=== PATIENT | female | born 1970 | race Caucasian/White ===

== ENCOUNTER 2020-08-29 16:14 | Emergency (ER) | payer BC, SELFPAY ==
[2020-08-29 16:14] VITALS: BP 118/93; PULSE 99; RESP 17; TEMP 36.7; O2SAT 94; BMI 27.3
--- NOTE | 2020-08-29 16:25 | PC.NURSE ---
PT STILL HAVING SOME SNORING RESP VERY HARD TO WAKE UP , PT RECEIVED 3MG INTRA NASAL BY EMS.
--- NOTE | 2020-08-29 16:27 | HMH.EDGENADL ---
ED Disposition Clinical Impression: Heroin overdose Qualifiers: Encounter type: initial encounter Injury intent: accidental or unintentional Qualified Code(s): T40.1X1A - Poisoning by heroin, accidental (unintentional), initial encounter Disposition: Home, Self-Care Condition on Discharge: Good Instructions: DI for Drug Overdose in Adults Referrals: PCP,No [Primary Care Provider] - - Critical Care Critical Care Time: No Attestation: On , the high probability of a clinically significant, sudden or life threatening deterioration of the following system(s) required my full and direct attention, intervention and personal management. The time I documented below is in addition to time spent performing reported procedures but includes the following listed in this critical care notation. Medical Decision Making - [place] Inquiry Pt receiving controlled substance: No Vital Signs: 08/29/20 16:14 08/29/20 16:31 08/29/20 17:00 Temperature 98.1 F Temperature Source Oral Pulse Rate 91 H 87 Pulse Rate [Right Brachial] 99 H Respiratory Rate 17 16 17 Blood Pressure 151/80 H Blood Pressure [Right Arm] 118/93 H Blood Pressure Mean 104 Blood Pressure Mean [Right Arm] 101 Blood Pressure Source [Right Arm] Automatic Cuff Blood Pressure Position [Right Arm] Supine 02 Sat by Pulse Oximetry 94 L 97 98 Oxygen Delivery Method Room Air Room Air Room Air - Lab Data Lab Results 08/29/20 16:25: WBC 7.9, RBC 4.59, Hgb 13.8, Hct 42.5, MCV 92.7, MCH 30.0, MCHC 32.4, RDW 13.1, Plt Count 254, MPV 7.3 L, Neut % (Auto) 53.6, Lymph % (Auto) 37.6, [place] % (Auto) 5.7, Eos % (Auto) 2.6, Baso % (Auto) 0.5, Neut # (Auto) 4.3, Lymph # (Auto) 3.0, [place] # (Auto) 0.5, Eos # (Auto) 0.2, Baso # (Auto) 0.0 08/29/20 16:25: Sodium 142, Potassium 4.2, Chloride 100, Carbon Dioxide 35 H, Anion Gap 11.2, BUN 11, Creatinine 1.00, Estimated Creat Clear 80, Estimated GFR 59, Est GFR ( Amer) 71, Glucose 140 H, Calcium 9.2, Total Bilirubin 0.3, AST 25, ALT 17, Alkaline Phosphatase 79, Total Protein 7.0, Albumin 4.3, Globulin 2.7, Albumin/Globulin Ratio 1.6 Result diagrams: 08/29/20 16:25 08/29/20 16:25 Orders (Tests/Meds): ED MEDICATIONS Discontinued Medications Generic Name Dose Route Start Last Admin Trade Name Daniel PRN Reason Stop Dose Admin Naloxone HCl 2 mg 08/29/20 16:30 08/29/20 16:33 Naloxone 2mg/2ml Syringe IV 08/29/20 16:31 2 mg ONCE ONE Administration ORDERS Category Date Time Status Drug Screen,Urine Stat Lab 08/29/20 16:36 Ordered - Reevaluation(s) Time: 18:10 Reevaluation #1: 2 hours after arrival patient is awake alert, ambulatory, and insisting on discharge. General Adult HPI - General Stated complaint: od Time Seen by Provider: 08/29/20 16:27 - History of Present Illness HPI narrative: Brought in by ambulance along with her boyfriend, both with an apparent overdose. Both were unresponsive upon sectionizer arrival. Both received Narcan prior to arrival with response. She arrived still drowsy with sonorous respirations and was given additional Narcan with immediate response. She now appears to be in withdrawal. She is shivering, complaining of feeling cold, hyperactive and restless. She says I guess I overdosed . She admits to snorting heroin with her boyfriend. She says she uses heroin several times a month. She is on prescribed Adderall. She denies any other drug use or alcohol use. - Related Data Home Medications Medication Instructions Recorded Confirmed Dextroamphetamine/Amphetamine 20 mg PO BID 08/29/20 08/29/20 [Dextroamp-Amphetamin 20 mg Tab] estradioL [Estradiol (Twice 1 each TD DIRECTED 08/29/20 08/29/20 Weekly)] Allergies Allergy/AdvReac Type Severity Reaction Status Date / Time Penicillins Allergy Mild Verified 08/29/20 16:29 Sulfa (Sulfonamide Allergy Mild Verified 08/29/20 16:29 Antibiotics) [facility] History - H
[2020-08-29 16:29] VITALS: BMI 25.0
[2020-08-29 16:31] VITALS: PULSE 91; RESP 16; O2SAT 97
[2020-08-29 16:44] LABS: Basophils % 0.5 % (0.1-2.0); Eosinophils # 0.2 K/mm3 (0.0-0.4); Eosinophils % 2.6 % (0.1-12.0); Hematocrit 42.5 % (37.0-47.0); Hemoglobin 13.8 g/dL (12.2-16.2); Lymphocytes % 37.6 % (10-50); Mean Corpuscular HGB Conc 32.4 g/dL (31.8-35.4); Mean Corpuscular Volume 92.7 fl (81-99); Mean Platelet Volume 7.3 fl (7.4-10.4); Monocytes # 0.5 K/mm3 (0.1-1.0); Monocytes % 5.7 % (1.7-9.3); Neutrophils # 4.3 K/mm3 (1.8-7.8); Neutrophils % 53.6 % (37.0-80.0); Platelet Count 254 K/mm3 (142-424); Red Blood Count 4.59 M/mm3 (4.20-5.40); Red Cell Distribution Width 13.1 % (11.5-17.5); White Blood Count 7.9 K/mm3 (4.8-10.8)
[2020-08-29 16:48] LABS: Alanine Aminotransferase 17 U/L (12-78); Albumin Level 4.3 g/dl (3.5-5.0); Albumin/Globulin Ratio 1.6 (1.1-1.8); Alkaline Phosphatase 79 U/L (38-126); Anion Gap 11.2 mEq/L (5-15); Aspartate Amino Transferase 25 U/L (14-36); Bilirubin,Total 0.3 mg/dl (0.2-1.3); Blood Urea Nitrogen 11 mg/dl (7-17); Calcium 9.2 mg/dl (8.4-10.2); Carbon Dioxide 35 mmol/L (22.0-30.0); Chloride 100 mmol/L (98-107); Creatinine Clearance Estimated 80 mL/min (50-200); Estimated Glomerular Filt Rate 59 ml/min (>60); GFR (African American) 71 ML/MIN (>60); Globulin 2.7 g/dL (1.3-3.2); Glucose 140 mg/dl (74-100); Potassium 4.2 mmoL/L (3.5-5.1); Sodium 142 mmol/L (136-145)
[2020-08-29 17:00] VITALS: BP 151/80; PULSE 87; RESP 17; O2SAT 98
[2020-08-29 18:13] VITALS: BP 140/77; PULSE 87; RESP 19; TEMP 36.8; O2SAT 98
--- NOTE | 2020-08-29 18:20 | PC.NURSE ---
Pt refused to take her discharge paperwork instructions. She did sign that she re ceived them, and them handed paperwork back, asking this RN to shred these, I don't want anyone to know about this ever
== END 2020-08-29 18:20 | disposition home or self-care (01) ==
PROVIDERS: Emergency Provider Emergency Medicine
DX: T40.1X1A Poisoning by heroin, accidental (unintentional), initial encounter (principal); R03.0 Elevated blood-pressure reading, without diagnosis of hypertension; F98.8 Other specified behavioral and emotional disorders with onset usually occurring in childhood and adolescence; Z79.899 Other long term (current) drug therapy; Z88.0 Allergy status to penicillin; Z88.2 Allergy status to sulfonamides
CPT/HCPCS: 80053; 85025; 96374; 99282; J2310